=== PATIENT | male | born 1985 | race Caucasian/White ===

== ENCOUNTER 2024-07-19 15:53 | Emergency (ER) | payer BC ==
[2024-07-19 18:51] LABS: Absolute Lymphocytes (CBC) 1.8 K/uL (0.7-4.9); Absolute Monocytes 0.5 K/uL (0.1-1.3); Absolute Neutrophil 8.8 K/uL (1.8-8.0); Basophils % 0.1 % (0-1.3); Eosinophils % 0.4 % (0-4.4); Hematocrit 44.5 % (39.6-49.0); MCHC 33.6 g/dL (32.0-36.0); MCV 89.2 fL (80-100); MPV 8.8 fL (7.6-11.3); Monocytes % 4.5 % (3.3-12.3); Nucleated Red Blood Cells % 0.1 % (0-0); Platelets 196 thou/uL (152-406); RBC Red Blood Cell Count 4.99 M/uL (4.33-5.43); Red Cell Distribution Width 13.1 % (12.1-15.2)
[2024-07-19 18:55] LABS: PT Prothrombin Time 13.2 SECONDS (10-13.0); Protime INR 1.17
[2024-07-19 18:58] LABS: Albumin 4.5 g/dL (3.4-5.0); Albumin/Globulin Ratio 1.1 (1.1-1.8); Anion Gap 11.6 mEq/L (5.0-15.0); Bilirubin Direct 0.3 mg/dL (0-0.2); Bilirubin Indirect, Calculated 1.4 mg/dL (0.2-0.8); Bilirubin Total 1.7 mg/dL (0.2-1.0); Globulin 4.1 g/dL (2.3-3.5); Magnesium 2.4 mg/dL (1.6-2.4); Potassium 3.6 mEq/L (3.5-5.1); Protein, Total 8.6 g/dL (6.4-8.2)
[2024-07-19 19:05] LABS: D-Dimer 0.286 FEUug/mL (0-0.500)
--- NOTE | 2024-07-19 19:17 | EDPHYS ---
Physician Documentation [facility] Name: Jonathan Mcnulty Jr Age: 39 yrs Sex: Male : 1985 Arrival Date: 07/19/2024 Time: 15:53 Bed DX1 Private MD: ED Physician Chilo Gatica HPI: 07/19 16:43 This 39 yrs old Male presents to ER via Ambulatory with complaints of Shortness Of cp Breath, Sore Throat, Chest Tightness. 16:43 The patient has shortness of breath intermittent. Onset: The symptoms/episode cp began/occurred last month. 16:43 Duration: The symptoms are intermittent, with no pattern. Associated signs and cp symptoms: Pertinent negatives: chest pain, non-productive cough, productive cough, diaphoresis, dizziness, fever, vomiting, syncope, near syncope. Patient reports symptoms of shortness of breath started last month after being sick with fever and cough. Patient was not seen by physician for illness and felt better. Reports intermittent episodes of shortness of breath with and without exertion. No chest pain. Patient reports he was seen at urgent care and tested negative for flu and covid, chest xray was negative. Historical: - Allergies: 16:19 No Known Allergies; iw - Home Meds: 16:19 None [Active]; iw - PMHx: 16:19 Cirrhosis of liver; iw - PSHx: 16:19 right arm; nadine feet; iw - Immunization history:: Adult Immunizations not up to date. - Infectious Disease History:: Denies. - Social history:: Smoking status: Patient denies any tobacco usage or history of. ROS: 16:45 Constitutional: Negative for body aches, chills, fever, poor PO intake, cp 16:45 Eyes: Negative for injury, pain, redness, and discharge, cp 16:45 ENT: Negative for drainage from ear(s), ear pain, sore throat, difficulty swallowing, difficulty handling secretions, 16:45 Cardiovascular: Negative for chest pain, edema, palpitations, 16:45 Respiratory: Positive for shortness of breath, Negative for cough, wheezing, 16:45 Abdomen/GI: Negative for abdominal pain, vomiting, diarrhea, constipation, 16:45 Neuro: Negative for altered mental status, dizziness, headache, numbness, syncope, near syncope, weakness, 16:45 All other systems are negative, Exam: 16:50 Constitutional: The patient appears in no acute distress, alert, awake, cp non-diaphoretic, non-toxic, well developed, well nourished, 16:50 Head/Face: Normocephalic, atraumatic. cp 16:50 Eyes: Periorbital structures: appear normal, Conjunctiva: normal, no exudate, no injection, Sclera: no appreciated abnormality, Lids and lashes: appear normal, bilaterally, 16:50 ENT: External ear(s): are unremarkable, Nose: is normal, Mouth: Lips: moist, Oral mucosa: pink and intact, moist, Posterior pharynx: Airway: no evidence of obstruction, patent, 16:50 Neck: ROM/movement: is normal, is supple, without pain, no range of motions limitations, no meningismus, no nuchal rigidity, 16:50 Chest/axilla: Inspection: normal, 16:50 Cardiovascular: Rate: normal, Rhythm: regular, Edema: is not appreciated, JVD: is not appreciated, 16:50 Respiratory: the patient does not display signs of respiratory distress, Respirations: normal, no use of accessory muscles, no retractions, labored breathing, is not present, Breath sounds: are clear throughout, no decreased breath sounds, no stridor, no wheezing, 16:50 Abdomen/GI: Exam negative for discomfort, distension, guarding, Inspection: abdomen appears normal, 16:50 Back: pain, is absent, ROM is normal, 16:50 Neuro: Orientation: to person, place \T\ time. Mentation: is normal, Motor: moves all fours, strength is normal, Sensation: is normal, 19:17 ECG was reviewed by the Attending Physician. cp Vital Signs: 16:15 BP 135 / 106; Pulse 77; Resp 18; Temp 98.2; Pulse Ox 100% on R/A; Weight 81.65 kg; iw Height 5 ft. 7 in. ; Pain 0/10; 16:15 Body Mass Index 28.19 (81.65 kg, 170.18 cm) iw 16:15 Pain Scale: Adult iw MDM: 16:31 Medical Screening Exam initiated 19:15 Data reviewed: vital signs, nurses notes, lab test result(s), EKG, and as a result, I will discharge patient. 07/19 16:39 Order name: Basic Metabolic Panel; Complete Time: 19:07 cp 03/08 16:39 Order name: CBC with Diff; Complete Time: 19:07 cp /08 19:07 Interpretation: Normal except: WBC 11.10; LENARD% 79.0; NEUT A 8.8. cp 03/ 16:39 Order name: LFT's; Complete Time: 19:07 cp /08 19:07 Interpretation: Normal except: BILIT 1.7; BILID 0.3; IBILI, CALC 1.4; TP 8.6; GLOB 4.1. cp 03/ 16:39 Order name: Magnesium; Complete Time: 19:07 cp 03/ 16:39 Order name: NT PRO-BNP; Complete Time: 19:07 cp / 16:39 Order name: PT-INR; Complete Time: 19:07 cp 07/19 19:08 Interpretation: Abnormal: PT 13.2. cp 03/ 16:39 Order name: Troponin HS; Complete Time: 19:07 cp 08 19:05 Order name: D-Dimer; Complete Time: 19:07 EDMS 03/08 16:39 Order name: EKG; Complete Time: 16:40 cp 03/08 16:39 Order name: Cardiac monitoring; Complete Time: 19:22 cp /08 16:39 Order name: EKG - Nurse/Tech; Complete Time: 19:22 cp /08 16:39 Order name: IV Saline Lock; Complete Time: 19:22 cp /08 16:39 Order name: Labs collected and sent; Complete Time: 19:22 cp / 16:39 Order name: O2 Per Protocol; Complete Time: 19:22 cp 07/19 16:39 Order name: O2 Sat Monitoring; Complete Time: 19:22 cp EC:17 Rate is 73 beats/min. Rhythm is regular. FL interval is normal. QRS interval is normal. cp QT interval is normal. T waves are Inverted in lead aVR. Interpreted by me. Reviewed by me. Administered Medications: No medications were administered Disposition Summary: 07/19/24 19:16 Discharge Ordered Notes: Location: Home cp Problem: new cp Symptoms: are unchanged cp Condition: Stable cp Diagnosis - Shortness of breath cp Followup: cp - With: Private Physician - When: 5 - 6 days - Reason: Recheck today's complaints Discharge Instructions: - Discharge Summary Sheet cp - Shortness of Breath, Adult cp Forms: - Medication Reconciliation Form cp - Antibiotic Education cp - Prescription Opioid Use cp - Patient Portal Instructions cp - Leadership Thank You Letter cp Signatures: Dispatcher [employer] Veronica Silveira RN RN Chilo Parrish PA PA cp Corrections: (The following items were deleted from the chart) 18:55 16:40 D-DIMER+[email or web address] ordered. [facility] 07/20 19:36 07/19 16:43 Patient reports symptoms of shortness of breath started last month after cp being sick with fever and cough. Patient was not seen by physician for illness and felt better. Reports intermittent episodes of shortness of breath with and without exertion. No chest pain. cp
--- NOTE | 2024-07-19 19:17 | ER ---
Nurse's Notes [facility] Name: Jonathan Mcnulty Jr Age: 39 yrs Sex: Male : 1985 Arrival Date: 07/19/2024 Time: 15:53 Bed DX1 Private MD: Diagnosis: Shortness of breath Presentation: 07/19 16:15 Chief complaint: Patient states: about a month ago i was sick with fever and two or iw three days later i had an episode of SOB, I am having episodes of SOB once a week, I don't feel like I'm getting air , was seen at urgent care CXR was fine , it makes me feel like my airway os closed , no chest pain. Coronavirus screen: At this time, the client does not indicate any symptoms associated with coronavirus-19. Ebola Screen: No symptoms or risks identified at this time. Initial Sepsis Screen: Does the patient meet any 2 criteria? No. Patient's initial sepsis screen is negative. Does the patient have a suspected source of infection? No. Patient's initial sepsis screen is negative. Risk Assessment: Do you want to hurt yourself or someone else? Patient reports no desire to harm self or others. Onset of symptoms was June 2024. 16:15 Method Of Arrival: Ambulatory iw 16:15 Acuity: YUSUF 3 iw Historical: - Allergies: 16:19 No Known Allergies; iw - Home Meds: 16:19 None [Active]; iw - PMHx: 16:19 Cirrhosis of liver; iw - PSHx: 16:19 right arm; nadine feet; iw - Immunization history:: Adult Immunizations not up to date. - Infectious Disease History:: Denies. - Social history:: Smoking status: Patient denies any tobacco usage or history of. Assessment: 18:47 Reassessment: Patient appears in no apparent distress at this time. Patient and/or iw family updated on plan of care and expected duration. Pain level reassessed. Patient is alert, oriented x 3, equal unlabored respirations, skin warm/dry/pink. Vital Signs: 16:15 BP 135 / 106; Pulse 77; Resp 18; Temp 98.2; Pulse Ox 100% on R/A; Weight 81.65 kg; iw Height 5 ft. 7 in. ; Pain 0/10; 16:15 Body Mass Index 28.19 (81.65 kg, 170.18 cm) iw 16:15 Pain Scale: Adult iw ED Course: 15:56 Patient arrived in ED. im 16:18 Triage completed. iw 16:20 Arm band placed on. iw 16:29 Chilo Solis PA is PHCP. cp 16:29 Chilo Gatica MD is Attending Physician. cp 18:47 Veronica Haynes RN is Primary Nurse. iw Administered Medications: No medications were administered Outcome: 19:16 Discharge ordered by . cp 19:32 Patient left the ED. iw Signatures: Veronica Haynes RN RN iw Chilo Solis PA PA cp Susan Sheldon im Corrections: (The following items were deleted from the chart) 16:20 16:15 BP 135 / 106; Pulse 77bpm; Resp 18bpm; Pulse Ox 100% RA; Temp 98.2F; iw iw
[2024-07-19 19:42] VITALS: BP 135/106; TEMP 98.2; O2SAT 100
--- NOTE | 2024-07-22 11:09 | EKG ---
Test Date: 2024-07-19 Test Time: 19:13:14 Merchandising Consultant: NILO MEASUREMENT RESULTS: Intervals: Rate: 73 AK: 144 QRSD: 84 QT: 366 QTc: 403 Brethren: P: 57 AK: 144 QRS: 12 T: 44 INTERPRETIVE STATEMENTS: Normal sinus rhythm with sinus arrhythmia Normal ECG No previous ECG available for comparison Electronically Signed On 07-22-24 11:02:05 CDT by Shorty Dumas
== END 2024-07-19 19:32 | disposition home or self-care (01) ==
LOC: ER 15:53
DX: R06.02 Shortness of breath (principal)
CPT/HCPCS: 36415; 80048; 80076; 83735; 83880; 84484; 85025; 85379; 85610; 93005; 99281